=== PATIENT | female | born 1960 | race African-American/Black ===

== ENCOUNTER 2021-11-27 22:29 | Emergency (ER) | payer MEDICAID ==
[~2021-11-27] VITALS: Ht 162.6 cm; Wt 104.3 kg
[~2021-11-27 22:29] MED LIST: ALBU18 IN; AMIT1TAB35 GT; ASPI81CH74 PO; CETI10CH PO; DIGO0.2570 PO; INS7030I SC; LOSA-39 PO; OME20T PO; POTA-167 PO; SIMV-8 PO
[2021-11-27 23:48] LABS: Hematocrit 39.4 % (36.0-46.0); Hemoglobin 13.2 g/dL (12.2-16.2); Mean Corpuscular Hemoglobin 29.4 pg (28.0-32.0); Mean Corpuscular Hgb Conc. 33.6 g/dL (32.0-36.0); Mean Corpuscular Volume 87.4 fL (80.0-100.0); Red Blood Cells 4.51 10^6/uL (4.0-5.20); Red Cell Distribution Width 13.8 % (11.8-14.3); White Blood Cell 6.3 10^3/uL (4.4-10.8)
[2021-11-27 23:52] LABS: Basophils % (manual) 0 (0.0-2.0); Blast Cells 0; Metamyelocytes % 0; Myelocytes % 0; Promyelocytes % 0; Reactive Lymphocytes 0
[2021-11-27 23:57] LABS: Albumin 3.5 g/dL (3.4-5.0); BUN/Creatinine Ratio 19.3; Calcium 9.7 mg/dL (8.5-10.1); Potassium 4.1 mmol/L (3.5-5.1)
[2021-11-28 00:32] LABS: Band Neutrophils % (manual) 1; Eosinophils % (manual) 18 (0-7); Lymphocytes % (manual) 47 (10.0-50.0); Monocytes % (manual) 11 (0-12)
[2021-11-28 00:33] LABS: Bilirubin, Total 0.2 mg/dL (0.2-1.0)
[2021-11-28 03:00] VITALS: BP 130/70
== END 2021-11-28 04:13 | disposition home or self-care (01) ==
LOC: ER 22:30
DX: R07.89 Other chest pain (principal); E11.9 Type 2 diabetes mellitus without complications; I10 Essential (primary) hypertension; Z88.2 Allergy status to sulfonamides; Z20.822 Contact with and (suspected) exposure to COVID-19
CPT/HCPCS: 36415; 71046; 80053; 84484; 85007; 85027; 87426; 93005

== ENCOUNTER → 2024-07-29 | Outpatient (CLI) | payer MEDICAID ==
[~2024-07-29] MED LIST changes: +AMIT-118 GT; -AMIT1TAB35 GT; -LOSA-39 PO; +LOSA-535 PO; -POTA-167 PO; +POTA-211 PO; -SIMV-8 PO; +SIMV20TA20 PO
[2024-07-29 11:39] LABS: Triglycerides 67 mg/dL (< 150)
[2024-07-29 11:40] LABS: Alanine Aminotransferase 19 U/L (7-40); Albumin 4.1 g/dL (3.2-4.8); Alkaline Phosphatase 69 U/L (46-116); Anion Gap 7 (5-15); Aspartate Aminotransferase 16 U/L (13-40); BUN/Creatinine Ratio 13.8 (10.0-20.0); Bilirubin, Total 0.5 mg/dL (0.2-1.0); Blood Urea Nitrogen 16 mg/dL (9-23); Calcium 9.7 mg/dL (8.7-10.4); Carbon Dioxide 27 mmol/L (20-31); Chloride 107 mmol/L (98-107); Cholesterol 119 mg/dL (< 200); Glucose 139 mg/dL (74-106); HDL Cholesterol 47 mg/dL (40-59); LDL Cholesterol 58 mg/dL (< 100); Potassium 4.2 mmol/L (3.5-5.1); Sodium 141 mmol/L (136-145); Total Protein 7.3 g/dL (5.7-8.2)
== END | disposition home or self-care (01) ==
LOC: LAB 09:18
PROVIDERS: ATTEND Internal Medicine
DX: E11.22 Type 2 diabetes mellitus with diabetic chronic kidney disease (principal); N18.30 Chronic kidney disease, stage 3 unspecified
CPT/HCPCS: 36415; 80053; 80061; 83036